=== PATIENT | male | born 1970 | race Caucasian/White ===

== ENCOUNTER → 2016-11-21 | Outpatient (CLI) | payer OTHER ==
[~2016-11-21] MED LIST: ACET1TAB12 PO; CHLO-120 PO; MELO7.5T12 PO; MULT-806 PO; OMEP20TA11 PO; ONDA4TAB4 PO; [UNRECOGNIZED DRUG - CODE] TP
== END ==
LOC: NEU 10:15
PROVIDERS: ATTEND Physician Assistant Surgical
DX: G56.03 Carpal tunnel syndrome, bilateral upper limbs (principal)
CPT/HCPCS: 95886; 95911